=== PATIENT | male | born 1985 ===

== ENCOUNTER 2017-01-10 12:44 | Emergency (ER) | payer MEDICAID, OTHER ==
[2017-01-10 12:57] VITALS: BMI 24.3
[2017-01-10 12:59] VITALS: RESP 20; TEMP 98.2
[2017-01-10 13:12] VITALS: BP 115/77; PULSE 86; O2SAT 96
--- NOTE | 2017-01-10 13:34 | RAD ---
HISTORY: cough and back pain COMPARISON: 09/21/2015 TECHNIQUE: Chest PA and lateral FINDINGS: LUNGS: No active pulmonary disease. Bronchovascular markings are top-normal and similar-appearing. No interval consolidation suggested PLEURA: No significant pleural effusion identified. No pneumothorax apparent. CARDIOVASCULAR: Normal. OSSEOUS STRUCTURES: No significant abnormalities. VISUALIZED UPPER ABDOMEN: Normal. OTHER FINDINGS: None. IMPRESSION: No interval or active disease. Specifically no interval infiltrate
--- NOTE | 2017-01-10 13:39 | C.PDOC ---
History Of Present Illness The patient, a 31 y/o male, presents to the ED for evaluation of left-sided upper back pain and nonproductive cough which began around 1 week ago. Patient reports his pain is exacerbated with deep inspiration. Otherwise, he denies fever, chills, chest pain, shortness of breath, upper/lower extremity numbness/ weakness, and direct trauma/injury to the affected area. Time Seen by Provider: 01/10/17 13:07 Chief Complaint (Nursing): Upper Extremity Problem/Injury History Per: Patient History/Exam Limitations: no limitations Onset/Duration Of Symptoms: Other (1 week ) Current Symptoms Are (Timing): Still Present Additional History Per: Patient Past Medical History Reviewed: Historical Data, Nursing Documentation, Vital Signs Vital Signs: Last Vital Signs Temp 98.2 F 01/10/17 13:01 Pulse 86 01/10/17 13:01 Resp 20 01/10/17 13:01 BP 115/77 01/10/17 13:01 Pulse Ox 96 01/10/17 16:57 - Medical History PMH: No Chronic Diseases Surgical History: No Surg Hx Family History: States: Unknown Family Hx - Social History Hx Alcohol Use: Yes Hx Substance Use: No - Immunization History Hx Tetanus Toxoid Vaccination: No Hx Influenza Vaccination: No Hx Pneumococcal Vaccination: No Review Of Systems Constitutional: Negative for: Fever, Chills ENT: Negative for: Ear Pain, Nose Congestion Cardiovascular: Negative for: Chest Pain, Palpitations Respiratory: Positive for: Cough, Pleuritic Pain. Negative for: Shortness of Breath, Sputum Gastrointestinal: Negative for: Vomiting, Abdominal Pain, Diarrhea Genitourinary: Negative for: Incontinence Musculoskeletal: Positive for: Back Pain (left-sided, upper ) Neurological: Negative for: Weakness, Numbness Physical Exam - Physical Exam Appears: Non-toxic, No Acute Distress Skin: Normal Color, Warm, Dry Head: Atraumatic, Normacephalic Eye(s): bilateral: Normal Inspection Oral Mucosa: Moist Neck: Normal ROM, Supple Chest: Symmetrical, No Deformity, No Tenderness Cardiovascular: Rhythm Regular, No Murmur Respiratory: Normal Breath Sounds, No Rales, No Rhonchi, No Wheezing Back: Normal Inspection, No Vertebral Tenderness, No Paraspinal Tenderness Extremity: Normal ROM, No Tenderness, Capillary Refill (less than 2 seconds ), No Deformity, No Swelling Neurological/Psych: Oriented x3, Normal Speech Gait: Steady ED Course And Treatment ECG: Interpreted By Me, Viewed By Me ECG Rhythm: Sinus Rhythm ECG Interpretation: No Acute Changes Rate From EC O2 Sat by Pulse Oximetry: 96 (on RA) Pulse Ox Interpretation: Normal Medical Decision Making Medical Decision Making: Impression: 31 y/o male with left-sided upper back pain Plan: * CXR * Motrin PO * reassess and disposition Progress Note: EKG obtained during triage, NS at 76 bpm. CXR ordered and reviewed. Patient received Motrin PO. On reassessment, patient is resting comfortably, showing no signs of distress, and reports an improvement in his pain. Lungs clear bilaterally and oxygen saturation is appropriate. Patient is advised to follow up with PMD within a timely manner for further evaluation. Disposition Counseled Patient/Family Regarding: Diagnosis, Need For Followup, Rx Given - Disposition Referrals: [facility] [Outside] [facility] [Outside] Disposition: HOME/ ROUTINE Disposition Time: 13:36 Condition: STABLE Additional Instructions: Follow up with your primary medical doctor or clinic in 2-5 days for further evaluation. Take medications as prescribed. Return to the emergency department at any time if symptoms persist or worsen. Prescriptions: Azithromycin [Z-Pawan] 250 mg PO DAILY #6 tab Promethazine DM [Phenergan DM Syrup] 5 ml PO Q8 PRN #3 oz PRN Reason: Cough Instructions: Acute Bronchitis (ED) - POA Present On Arrival: None - Clinical Impression Clinical Impression: Bronchitis - PA / ECONOMIC DEVELOPMENT DIRECTOR / Resident Statement MD/DO has reviewed & agrees with the documentation as recorded. - Scribe Statement The provider has reviewed the documentation as recorded by the Scribe (Cat Paige) All medical record entries made by the Scribe were at my direction and personally dictated by me. I have reviewed the chart and agree that the record accurately reflects my personal performance of the history, physical exam, medical decision making, and the department course for this patient. I have also personally directed, reviewed, and agree with the discharge instructions and disposition.
--- NOTE | 2017-01-26 12:57 | CARD ---
APPROVED REPORT EKG Measurement Heart [id number] <Conclusion> Normal sinus rhythm Normal ECG
== END 2017-01-10 13:52 | disposition home or self-care (01) ==
LOC: C.ER 12:44
DX: J40 Bronchitis, not specified as acute or chronic (principal)

== ENCOUNTER 2017-06-05 10:07 | Emergency (ER) | payer MEDICAID, OTHER ==
[2017-06-05 10:07] VITALS: BMI 24.3
[2017-06-05] MEDS ORDERED: Lidocaine 5% Patch TD STA (11:15)
[2017-06-05] MEDS ORDERED: Lidocaine 5% Patch TD ONE (11:39)
--- NOTE | 2017-06-05 11:42 | C.PDOC ---
History Of Present Illness 31 y/o male presents to ED with complaints of left rib pain since last after he was kneed by his son while playing with him. Patient states he took Tylenol yesterday with no improvement and came to ED because he is unable to sleep secondary to pain. Patient denies numbness, headache, chest pain, sob, cough or any other complaints at this time. Time Seen by Provider: 06/05/17 11:07 Chief Complaint (Nursing): Rib Injury History Per: Patient History/Exam Limitations: no limitations Onset/Duration Of Symptoms: Days Current Symptoms Are (Timing): Still Present Past Medical History Reviewed: Historical Data, Nursing Documentation, Vital Signs Vital Signs: Last Vital Signs Temp 97.6 F 06/05/17 10:09 Pulse 81 06/05/17 10:09 Resp 20 06/05/17 10:09 BP 125/78 06/05/17 10:09 Pulse Ox 97 06/05/17 11:45 - Medical History PMH: No Chronic Diseases Surgical History: No Surg Hx Family History: States: No Known Family Hx - Social History Hx Alcohol Use: Yes Hx Substance Use: No - Immunization History Hx Tetanus Toxoid Vaccination: No Hx Influenza Vaccination: No Hx Pneumococcal Vaccination: No Review Of Systems Except As Marked, All Systems Reviewed And Found Negative. Constitutional: Negative for: Fever, Chills Cardiovascular: Negative for: Chest Pain Respiratory: Negative for: Cough, Shortness of Breath Gastrointestinal: Negative for: Nausea, Vomiting Musculoskeletal: Negative for: Back Pain Physical Exam - Physical Exam Appears: Non-toxic, No Acute Distress Skin: Normal Color, Warm, Dry, No Rash Head: Atraumatic, Normacephalic Eye(s): bilateral: Normal Inspection Oral Mucosa: Moist Neck: Normal ROM, Supple Chest: Symmetrical, Tenderness (To left low rib) Cardiovascular: Rhythm Regular, No Murmur Respiratory: Normal Breath Sounds, No Rales, No Rhonchi, No Wheezing Gastrointestinal/Abdominal: Soft, No Tenderness, No Guarding, No Rebound Extremity: Normal ROM, Capillary Refill (<2 seconds) Neurological/Psych: Oriented x3 ED Course And Treatment O2 Sat by Pulse Oximetry: 97 (RA) Pulse Ox Interpretation: Normal Medical Decision Making Medical Decision Making: Plan: * Patient denied rib xray * Pain medication Disposition Counseled Patient/Family Regarding: Studies Performed, Diagnosis - Disposition Referrals: [facility] [Outside] Disposition: HOME/ ROUTINE Disposition Time: 13:13 Condition: STABLE Additional Instructions: Follow up with your doctor or our clinic. Prescriptions: Ibuprofen [Motrin] 600 mg PO TID #15 tab Instructions: Rib Contusion (ED) Forms: [facility] (French) - POA Present On Arrival: None - Clinical Impression Clinical Impression: Contusion of rib on left side - Scribe Statement The provider has reviewed the documentation as recorded by the Geovanyibchay Coelho All medical record entries made by the Geovanyibchay were at my direction and personally dictated by me. I have reviewed the chart and agree that the record accurately reflects my personal performance of the history, physical exam, medical decision making, and the department course for this patient. I have also personally directed, reviewed, and agree with the discharge instructions and disposition.
[2017-06-05 14:02] VITALS: BP 108/69; PULSE 72; RESP 18; TEMP 98; O2SAT 100
--- NOTE | 2017-06-05 14:35 | RAD ---
Chest x-ray and left ribs four views History: Rib pain. Comparison: None available. Findings: No focal infiltrate or effusion. Heart size within normal limits. No evidence of acute displaced rib fracture. Impression: No evidence for acute displaced rib fracture. No evidence of pneumothorax. If pain persists, consider further evaluation with chest CT.
== END 2017-06-05 14:02 | disposition home or self-care (01) ==
LOC: C.ER 10:07
DX: S20.212A Contusion of left front wall of thorax, initial encounter (principal); W50.0XXA Accidental hit or strike by another person, initial encounter; Y93.89 Activity, other specified; Y92.89 Other specified places as the place of occurrence of the external cause